=== PATIENT | male | born 1945 | race Caucasian/White ===

== ENCOUNTER 2017-12-24 19:58 | Inpatient (IN) | payer MEDICARE, OTHER ==
[~2017-12-24] VITALS: Ht 188 cm; Wt 103.1 kg
--- OUTSIDE RECORDS SUMMARY | ~2017-12-24 | XMS | Clinical Summary ---
Demographics + + + | Address | [address] | | | [place] [address] | + + + | Home Phone | | + + + | Preferred Language | Unknown | + + + | Marital Status | | + + + | Church Affiliation | Unknown | + + + | Race | Unknown | + + + | Ethnic Group | Unknown | + + + Author + + + | Author | [facility] | | | and [place] | + + + | Organization | [facility] | | | and [place] | + + + | Address | Unknown | + + + | Phone | Unavailable | + + + Support + + + + + | Name | Relationship | Address | Phone | + + + + + | Lisbeth Nunez | ECON | [address] | | | | | [place] | | | | | [address] | | + + + + + Care Team Providers + +------+ + | Care Implementation Advisor Name | Role | Phone | + +------+ + | Everton Stephen MD | PP | | + +------+ + Allergies Not on File Current Medications Not on file Active Problems Not on file Social History + +-------+ +--------+------+ | Tobacco Use | Types | Packs/Day | Years | Date | | | | | Used | | + +-------+ +--------+------+ | Never Assessed | | | | | + +-------+ +--------+------+ + + + | Sex Assigned at | Date Recorded | | | | + + + | Not on file | | + + + Plan of Treatment + + + + + | Health Maintenance | Due Date | Last Done | Comments | + + + + + | Hepatitis C | | | | | Screening | 7 | | | + + + + + | Vaccine: | | | | | Dtap/Tdap/Td (1 - | 6 | | | | Tdap) | | | | + + + + + | COLON CANCER | | | | | SCREENING | 7 | | | | (COLONOSCOPY EVERY | | | | | 10 YEARS 50-75) | | | | + + + + + | Vaccine: | | | | | Pneumococcal 65+ | 2 | | | | Low/Medium Risk (1 | | | | | of 2 - PCV13) | | | | + + + + + | Vaccine: Influenza | | | | | (Season Ended) | 8 | | | + + + + + Results Not on filefrom Last 3 Months Insurance + +--------+ +--------+ +---------+ | Payer | Benefi | Subscriber | Type | Phone | Address | | | t Plan | ID | | | | | | / | | | | | | | Group | | | | | + +--------+ +--------+ +---------+ | MEDICARE | MEDICA | xxxxxxxxxx | Medica | +1--- | | | | RE | | re | [phone] | | | | PART A | | | | | | | AND B | | | | | + +--------+ +--------+ +---------+ | [employer] | TRANSA | xxxxxxxxx | Indemn | | | | INSURANCE | MERICA | | ity | | | | | LIFE | | | | | | | [place] | | | | | + +--------+ +--------+ +---------+ + +--------+ +--------+ + + | Guarantor Name | Accoun | Relation to | Date | Phone | Billing Address | | | t Type | Patient | of | | | | | | | | | | + +--------+ +--------+ + + | BRIAN NUNEZ | Person | Self [birth year] | Home: | [address] | | | [place] | | 1944 | [phone] | [place] | | | [place] | | | [phone] | [phone] | + +--------+ +--------+ + +"
--- OUTSIDE RECORDS SUMMARY | ~2017-12-24 | XMS | Clinical Summary ---
Demographics + + + | Address | [address] | | | [place] [address] | + + + | Home Phone | | + + + | Preferred Language | Unknown | + + + | Marital Status | | + + + | Orthodoxy Affiliation | Unknown | + + + | Race | Unknown | + + + | Ethnic Group | Unknown | + + + Author + + + | Author | [facility] | | | and [place] | + + + | Organization | [facility] | | | and [place] | [...] [place] | | | | | [address] | | + + + + + Care Team Providers + +------+ + | Care Spanish Tutor Name | Role | Phone | + [...] | | [place] | | 1944 | [phone] | [place] | | | [place] | | | [phone] | [phone] | + +--------+ +--------+ + +"
--- OUTSIDE RECORDS SUMMARY | ~2017-12-24 | XMS | Clinical Summary ---
Demographics + + + | Address | [address] | | | [place] [address] | + + + | Home Phone | | + + + | Preferred Language | Unknown | + + + | Marital Status | | + + + | Mandaen Affiliation | Unknown | + + + | Race | Unknown | + + + | Ethnic Group | Unknown | + + + Author + + + | Author | [facility] | | | and [place] | + + + | Organization | [facility] | | | and [place] [...] [place] | | | | | [address] | | + + + + + Care Team Providers + +------+ + | Care Plant Manager Name | Role | Phone | + [...] | | [place] | | 1944 | [phone] | [place] | | | [place] | | | [phone] | [phone] | + +--------+ +--------+ + +"
--- OUTSIDE RECORDS SUMMARY | ~2017-12-24 | XMS | Clinical Summary ---
Demographics + + + | Address | [address] | | | [place] [address] | + + + | Home Phone | | + + + | Preferred Language | Unknown | + + + | Marital Status | | + + + | Alevism Affiliation | Unknown | + + + | Race | White | + + + | Ethnic Group | Not or | + + + Author + + + | Author | [facility] | + + + | Organization | [facility] | + + + | Address | Unknown | + + + | Phone | Unavailable | + + + Support + + +---------+ + | Name | Relationship | Address | Phone | + + +---------+ + | Lisbeth Church | ECON | Unknown | | + + +---------+ + Care Team Providers + +------+ + | Care Import/Export Administrator Name | Role | Phone | + +------+ + | Everton Stephen MD | PP | | + +------+ + Source Comments ANTONIO is fully live on both [facility] and [facility] InPatient.[facility] Allergies No Known Allergies Current Medications [...]
--- OUTSIDE RECORDS SUMMARY | ~2017-12-24 | XMS | Clinical Summary ---
Demographics + + + | Address | [address] | | | [place] [address] | + + + | Home Phone | | + + + | Preferred Language | Unknown | + + + | Marital Status | | + + + | Oriental Orthodox Affiliation | Unknown | + + + | Race | White | + + + | Ethnic Group | Not or | + + + Author + + + | Author | [facility] | + + + | Organization | [facility] | + [...] Team Providers + +------+ + | Care Fitter Helper Name | Role | Phone | + +------+ + | Everton Stephen MD | PP | | + +------+ + Source Comments ANTONIO is fully live on both [facility] Ambulatory and [facility] InPatient.[facility] Allergies No Known Allergies Current Medications + [...]
--- OUTSIDE RECORDS SUMMARY | ~2017-12-24 | XMS | Clinical Summary ---
Demographics + + + | Address | [address] | | | [place] [address] | + + + | Home Phone | | + + + | Preferred Language | Unknown | + + + | Marital Status | | + + + | Sikh Affiliation | Unknown | + + + | Race | White | + + + | Ethnic Group | Not or | + + + Author + + + | Author | [facility] | + + + | Organization | [facility] | + [...] Team Providers + +------+ + | Care Mechanical Research Engineer Name | Role | Phone | + +------+ + | Everton Stephen MD | PP | | + +------+ + Source Comments ANTONIO is fully live on both [facility] Ambulatory and [facility] InPatient.[facility] Allergies No Known Allergies Current Medications [...]
[~2017-12-24 19:58] MED LIST: ALLOPURINOL300 MG PO; ASPIR-LOW81 MG PO; ATIVAN1 MG PO; BENADRYL ALLERG25 MG PO; DEXAMETHASONE4 MG PO; DIFLUCAN200 MG PO; MULTI VITAMIN1 EACH PO; VITAMIN D5000 UNI1 PO; ZESTRIL10 MG PO; ZOVIRAX400 MG PO
[2017-12-25] MEDS ORDERED: TAMSULOSIN HCL0.4 MG PO (19:06)
[2017-12-25] MEDS ORDERED: CEFPODOXIME PR200 MG PO (19:08)
[2017-12-26] MEDS ORDERED: CEFPODOXIME PR200 MG PO (09:03)
== END 2017-12-26 09:30 | disposition home or self-care (01) | DRG 872 ==
LOC: ED 19:58 → MS 23:06 → CCU 23:06 → MS 12-25 14:47
PROVIDERS: ADMIT Internal Medicine
DX: A41.51 Sepsis due to Escherichia coli [E. coli] (principal); N30.00 Acute cystitis without hematuria; C94.81 Other specified leukemias, in remission; B96.89 Other specified bacterial agents as the cause of diseases classified elsewhere; N40.1 Benign prostatic hyperplasia with lower urinary tract symptoms; R35.0 Frequency of micturition; R35.1 Nocturia; R39.15 Urgency of urination; I10 Essential (primary) hypertension; F51.04 Psychophysiologic insomnia; M79.621 Pain in right upper arm; Z79.82 Long term (current) use of aspirin; Z79.899 Other long term (current) drug therapy
CPT/HCPCS: 36415; 71046; 76882; 80048; 80053; 81001; 83605; 83735; 85025; 85610; 85730; 87040; 87077; 87088; 87186; 87502; J0692; J0696; J1650; J2405; J7030; J7120

== ENCOUNTER 2018-04-12 15:52 | Emergency (ER) | payer MEDICARE, OTHER ==
[~2018-04-12] VITALS: Ht 185.4 cm; Wt 99.8 kg
--- OUTSIDE RECORDS SUMMARY | ~2018-04-12 | XMS | Clinical Summary ---
Demographics + + + | Address | [address] [address] | | | [place] [address] | + + + | Home Phone | | + + + | Preferred Language | Unknown | + + + | Marital Status | | + + + | Anabaptism Affiliation | Unknown | + + + | Race | White | + + + | Ethnic Group | Not or | + + + Author + + + | Author | [facility] | + + + | Organization | [facility] | + + + | Address | Unknown | + + + | Phone | Unavailable | + + + Support + + +---------+ + | Name | Relationship | Address | Phone | + + +---------+ + | Lisbeth Nunez | ECON | Unknown | | + + +---------+ + Care Team Providers + +------+ + | Care Records Custodian Name | Role | Phone | + +------+ + | Everton Stephen MD | PP | | + +------+ + Source Comments ANTONIO is fully live on both [facility] Amb[facility] and [facility] InPatient.[facility] Allergies No Known Allergies Current Medications + + +-------+---------+------+------+-------+ | Prescription | Sig. | Disp. | Refills | Star | End | Statu | | | | | | t | Date | s | | | | | | Date | | | + + +-------+---------+------+------+-------+ | lisinopril 10 mg | Take 10 mg by mouth | | | | | Activ | | Oral tablet | once daily. | | | | | e | + + +-------+---------+------+------+-------+ | aspirin EC 81 mg | Take 81 mg by mouth | | | | | Activ | | Oral tablet,delayed | once daily. | | | | | e | | release (DR/EC) | | | | | | | + + +-------+---------+------+------+-------+ | ERGOCALCIFEROL, | Take 8,000 mg by | | | | | Activ | | VITAMIN D2, (VITAMIN | mouth. | | | | | e | | D ORAL) | | | | | | | + + +-------+---------+------+------+-------+ | MULTIVITS/IRON | Take by mouth. | | | | | Activ | | FUM/FA/D3/LYCOP | | | | | | e | | (MULTI FOR HIM ORAL) | | | | | | | + + +-------+---------+------+------+-------+ Active Problems + + + | Problem | Noted Date | + + + | ANTONIO RESEARCH PROTOCOL PATIENT (ARACELY) | 08/01/2013 | + + + + + | Overview: The patient was consented to the study eIRB #[id number] | | titled "Pathogenesis of Acute Leukemia, Lymphoproliferative | | Disorders, Myelodysplastic Syndromes, and Myeloproliferative | | Disorders" on 06/21/2013 By Abelino Olivarez. Patient declined | | having a small skin biopsy taken during the bone marrow biopsy. | + + + + + | CLL (chronic lymphocytic leukemia) (HCC) | 06/21/2013 | + + + Immunizations +-------+ + + | Name | Dates Previously Given | Next Due | +-------+ + + | PCV13 | 06/21/2013 | | +-------+ + + Family History + + +------+ + | Medical History | Relation | Name | Comments | + + +------+ + | Cancer | Father | | GI tumor | + + +------+ + | Heart Disease | Father | | | + + +------+ + | Cancer | Mother | | oesphageal | + + +------+ + | Cancer | Sister | | cervical | + + +------+ + | Stroke | Sister | | | + + +------+ + + +------+--------+ + | Relation | Name | Status | Comments | + +------+--------+ + | Father | | | | + +------+--------+ + | Mother | | | | + +------+--------+ + | Sister | | | | + +------+--------+ + Social History + +-------+ +--------+------+ | Tobacco Use | Types | Packs/Day | Years | Date | | | | | Used | | + +-------+ +--------+------+ | Never Smoker | | | | | + +-------+ +--------+------+ + + +---------+ + | Alcohol Use | Drinks/We | oz/Week | Comments | | | ek | | | + + +---------+ + | Yes | | | 5-7 drinks a week | + + +---------+ + + + + | Sex Assigned at | Date Recorded | | | | + + + | Not on file | | + + + Last Filed Vital Signs + + + + | Vital Sign | Reading | Time Taken | + + + + | Blood Pressure | 142/89 | 06/21/2013 9:55 AM PDT | + + + + | Pulse | 71 | 06/21/2013 9:55 AM PDT | + + + + | Temperature | 36.8 C (98.3 F) | 06/21/2013 9:55 AM PDT | + + + + | Respiratory Rate | 18 | 06/21/2013 9:55 AM PDT | + + + + | Oxygen Saturation | 95% | 06/21/2013 9:55 AM PDT | + + + + | Inhaled Oxygen | - | - | | Concentration | | | + + + + | Weight | 97 kg (213 lb 14.4 | 06/21/2013 9:55 AM PDT | | | oz) | | + + + + | Height | 184 cm (6' 0.44") | 06/21/2013 9:55 AM PDT | + + + + | Body Mass Index | 28.66 | 06/21/2013 9:55 AM PDT | + + + + Plan of Treatment + + + + + | Health Maintenance | Due Date | Last Done | Comments | + + + + + | INFLUENZA VACCINE | | | | | (FLU SHOT) | 8 | | | + + + + + Results Not on filefrom Last 3 Months Insurance + +--------+ +--------+ + + | Payer | Benefi | Subscriber | Type | Phone | Address | | | t Plan | ID | | | | | | / | | | | | | | Group | | | | | + +--------+ +--------+ + + | MEDICARE | MEDICA | xxxxxxxxxx | Medica | +1- | [address] | | | RE A & | | re | [phone] | [place] [address] | | | B | | | | | + +--------+ +--------+ + + | COMMERCIAL | INDIVI | [phone] | Indemn | | | | INDIVIDUAL | DUAL | | ity | | | | | COMMER | | | | | | | CIAL | | | | | + +--------+ +--------+ + + + +--------+ +--------+ + + | Guarantor Name | Accoun | Relation to | Date | Phone | Billing Address | | | t Type | Patient | of | | | | | | | | | | + +--------+ +--------+ + + | BRIAN NUNEZ | Person | Self [birth year] | Home: | [address] | | | [place] | | 1945 | [phone] | [place] | | | [place] | | | [phone] | [phone] | + +--------+ +--------+ + +
--- OUTSIDE RECORDS SUMMARY | ~2018-04-12 | XMS | Clinical Summary ---
Demographics + + + | Address | [address] | | | [place] [address] | + + + | Home Phone | | + + + | Preferred Language | Unknown | + + + | Marital Status | | + + + | Jain Affiliation | Unknown | + + + | Race | Unknown | + + + | Ethnic Group | Unknown | + + + Author + + + | Author | [facility] | | | and [place] | + + + | Organization | [facility] | | | and [place] | [...] [place] | | | | | [address] | | + + + + + Care Team Providers + +------+ + | Care Global Process Owner Name | Role | Phone | + [...] | + + + + + | Colorectal Cancer | | | | | Screening | 7 | | | | (Colonoscopy) | | | | + + + + + | Vaccine: | | | | | Pneumococcal 65+ | 2 | | | | Low/Medium Risk (1 | | | | | of 2 - PCV13) | | | | + + + + + | Vaccine: Influenza | | | | | (#1) | 8 | | | + + [...] +--------+ +---------+ | MEDICARE | MEDICA | [id number] | Medica | [phone] | | | | RE | | re | [phone] | | | | PART A | | | | | | | AND B | | | | | + +--------+ +--------+ +---------+ | [employer] | TRANSA | [id number] | Indemn | | | | INSURANCE [...] Self | [birth year] | Home: | [address] | | | [place] | | 1945 | [phone] | [place] | | | [place] | | | [phone] | [phone] | + +--------+ +--------+ + +"
--- OUTSIDE RECORDS SUMMARY | ~2018-04-12 | XMS | Clinical Summary ---
Demographics + + + | Address | [address] | | | [place] [address] | + + + | Home Phone | | + + + | Preferred Language | Unknown | + + + | Marital Status | | + + + | Bahai Affiliation | Unknown | + + + | Race | Unknown | + + + | Ethnic Group | Unknown | + + + Author + + + | Author | [facility] | | | and [place] | + + + | Organization | [facility] | | | and [...] [place] | | | | | [address] | | + + + + + Care Team Providers + +------+ + | Care Estimator And Drafter Name | Role | Phone | + [...] +--------+ +---------+ | MEDICARE | MEDICA | [id number] | Medica | [phone] | | | | RE | | re | [phone] | | | | PART A | | | | | | | AND B | | | | | + +--------+ +--------+ +---------+ | [employer] | TRANSA | [id number] | Indemn | | | | INSURANCE [...] | | [place] | | 1945 | [phone] | [place] | | | [place] | | | [phone] | [phone] | + +--------+ +--------+ + +"
--- OUTSIDE RECORDS SUMMARY | ~2018-04-12 | XMS | Clinical Summary ---
Demographics + + + | Address | [address] [facility] [address] [facility] | | | [place] [address] | + + + | Home Phone | | + + + | Preferred Language | Unknown | + + + | Marital Status | | + + + | Restorationism Affiliation | Unknown | + + + [...] Team Providers + +------+ + | Care Senior Director Name | Role | Phone | + +------+ + | Everton Stephen MD | PP | | + +------+ + Source Comments ANTONIO is fully live on both [facility] Amb[facility] and [facility] InPatient.[facility] Allergies No Known Allergies Current Medications [...] | re | [phone] | [place] [address] | | | B | | | [...] | | [place] | | 1945 | [phone] | [place] | | | [place] | | | [phone] | [phone] | + +--------+ +--------+ + +
[~2018-04-12 15:52] MED LIST changes: +CEFPODOXIME PR200 MG PO; +TAMSULOSIN HCL0.4 MG PO
[2018-04-12] MEDS ORDERED: FLOMAX0.4 MG PO (16:09)
[2018-04-12] MEDS ORDERED: KEFLEX500 MG PO (19:13)
[2018-04-12] MEDS ORDERED: CEFPODOXIME PR200 MG PO (19:19)
== END 2018-04-12 19:35 | disposition home or self-care (01) ==
LOC: ED 15:52
DX: J32.9 Chronic sinusitis, unspecified (principal); R82.71 Bacteriuria; Z79.82 Long term (current) use of aspirin; Z79.899 Other long term (current) drug therapy
CPT/HCPCS: 71045; 80053; 81001; 83605; 85025; 96361; 96374; 99284; J0696; J7030

== ENCOUNTER 2022-07-09 10:20 | Day surgery (SDC) | payer MEDICARE, OTHER ==
[~2022-07-09] VITALS: Ht 188 cm; Wt 95.5 kg
[~2022-07-09 10:20] MED LIST changes: +FINASTERIDE5 MG PO; +FLOMAX0.4 MG PO; +IMBRUVICA420 MG PO; +KEFLEX500 MG PO; +MUPIROCIN15 GM TOP; +VITAMIN C500 M4 PO
[2022-07-09] MEDS ORDERED: ZINC50 MG PO (10:35)
[2022-07-09] MEDS ORDERED: ADULT LOW DOSE81 MG PO (10:36)
--- NOTE | 2022-07-09 12:23 | NUR ---
07/09/22 1223 Narda Macias 1211 PATIENT ARRIVES TO PACU SLEEPING ON ABD. RESP EVEN AND UNLABORED, NC OFF, ROOM AIR SATS >97%. 1215 PATIENT REPOSITIONS SELF TO BACK. RESP EVEN AND UNLABORED, ROOM AIR SATS >97%. DENIES PAIN OR NAUSEA.
--- NOTE | 2022-07-11 12:07 | PATH ---
[facility] [address] [place], [place] [address] Signed SPECIMEN(S): A BONE MARROW - CORE SPECIMEN(S): B BONE MARROW - ASPIRATION CLINICAL HISTORY: 76-year-old male with confirmed CLL, progressive lymphocytosis while on ibrutinib. Evaluate for recurrent disease. See attached. C91.90 (Lymphoid leukemia, unspecified not having achieved remission) DIAGNOSIS SUMMARY: Peripheral blood - Mild leukocytosis with mild relative and absolute lymphocytosis. Bone marrow, aspirate smear, touch imprint, aspirate clot and core biopsy: - Mildly hypercellular marrow (55%) involved by a small amount of CD5-positive B-cell infiltrate (10%), consistent with chronic lymphocytic leukemia/small lymphocytic lymphoma. - See Diagnostic Comment. DIAGNOSTIC COMMENT: The patient's reported clinical history of chronic lymphocytic leukemia/small lymphocytic lymphoma is noted. The current bone marrow biopsy shows mildly hypercellular marrow (55%) involved by small amount of CD5-positive B-cell infiltrate (10%), consistent with chronic lymphocytic leukemia/small lymphocytic lymphoma. There is no evidence of large cell transformation. Pending FISH studies will be reported by addendum. Clinical correlation is recommended. LY:clm:C1NR PERIPHERAL BLOOD: HEMOGRAM (07/09/2022): WBC 18.9 K/uL, RBC 5.17 M/uL, HGB 15.2 g/dL, HCT 47.0%, MCV 90.8 fL, MCH 29.5 pg, MCHC 32.4 g/dL, RDW 13.6%, PLT 309 K/uL, MPV 8.8 fL. MANUAL DIFFERENTIAL COUNT: Segmented neutrophils 26%, lymphocytes 63%, monocytes 11%. The red blood cells are normal in number with normal hemoglobin and hematocrit, and are normocytic and normochromic without overt anisocytosis. Rouleaux formation is not increased. The white blood cells are elevated in number with relative and absolute lymphocytosis. Lymphocytes include predominantly small lymphoid cells with round to slightly irregular nuclei, condensed chromatin, inconspicuous nucleoli and scant cytoplasm. A few scattered smudge cells are present. The platelets are normal in number and are morphologically PATIENT NAME: BRIAN NUNEZ PATHOLOGY DATE OF : 49 REPORT #: [id number] PHYSICIAN: LUKAS RO PCP: ISAAC MORSE MD REPORT IS CONFIDENTIAL AND NOT TO BE RELEASED WITHOUT AUTHORIZATION [facility] [address] [place], [place] [address] Signed unremarkable. BONE MARROW: ASPIRATE SMEARS: The aspirate smears show very scant cellular particles. The erythroid precursors show maturation and are mildly left-shifted without overt cytologic atypia. The myeloid precursors are mildly left-shifted with full maturation, without overt cytologic atypia. There is no increase in blasts. Small lymphoid cells account for 24%. Megakaryocytes are variable in size and morphologically unremarkable. BONE MARROW CORE BIOPSY/ASPIRATE CLOT CELL BLOCK: The core biopsy (two segments, 1.2 cm in greatest dimension) shows trabecular bone with partially disrupted hypercellular marrow (55%) for age with partial aspirate artifact. The erythroid precursors show maturation. The myeloid precursors show maturation. Scattered megakaryocytes show occasional hypolobated forms. A few scattered small lymphocytes account for less than 5% of cellularity. Focal interstitial small lymphoid aggregates composed predominantly of small lymphoid cells account for less than 5% of cellularity. A few scattered plasma cells account for less than 5% of cellularity. The aspirate clot shows small fragments of cellular marrow with similar morphology. SPECIAL STAINS (with adequate controls): - Iron (aspirate smear): Storage iron present; ring sideroblasts not identified. - Iron (aspirate clot): Trace storage iron present; ring sideroblasts not identified. IMMUNOHISTOCHEMICAL STAINS (block A1, with adequate controls): - CD3: Stains a few scattered and focally clustered small T-cells. - CD5: Positive in a few scattered and focally clustered small T-cells; dimly positive in scattered B-cell infiltrate. - CD20: Dimly positive in rare B-cells. - PAX5: Stains scattered and focally clustered small B-cell infiltrate (10%). - Cyclin D1: Negative in lymphoid cells. FLOW CYTOMETRY: Bone marrow, aspirate: - CD5-positive B-cell population (15%) identified. - No increase in blasts. - No aberrant T-cell population. - See Comment. COMMENT: PATIENT NAME: BRIAN NUNEZ PATHOLOGY DATE OF : 49 REPORT #: [id number] PHYSICIAN: LUKAS PATHOLOGY PCP: ISAAC MORSE MD REPORT IS CONFIDENTIAL AND NOT TO BE RELEASED WITHOUT AUTHORIZATION [facility] [address] [place] [id number] Signed In summary, flow cytometry reveals a population of dim lambda-restricted B-cells (64% of lymphocytes, 15% of total events) expressing CD5(dim), CD19(dim-mod), CD20(dim) and CD200(dim-mod), and negative for CD10, CD23 and CD38. The phenotypic findings raise differential diagnosis of chronic lymphocytic leukemia/small lymphocytic lymphoma and monoclonal B-cell lymphocytosis. Correlation with morphologic findings is recommended for full evaluation. FLOW CYTOMETRY ANALYSIS: FLOW DIFFERENTIAL (% Total CD45 vs. SSC gating): Myeloid 68%; Lymphoid 23%; Monocyte 3%; Dim CD45/Blast: 0.9%. Cell Count: 8.3 x 10*3/uL. POPULATION ANALYSIS: BLASTS: Analysis of the dim CD45 gate demonstrates 0.9% myeloblasts by CD34/CD117 and 0.1% hematogones. LYMPHOID CELLS: The lymphocyte gate comprises 23% of total events and includes 28% T-cells with a CD4:CD8 ratio of 1.0:1 and normal morris T-cell antigen expression. A lambda-restricted B-cell population is detected (64% of lymphocytes, 15% of total events) expressing CD45 DIM-MOD, CD19 DIM-MOD, CD20 DIM, CD5 DIM and LAMBDA DIM while negative for CD10, CD23 and CD38. Due to the absence of CD23 expression, select additional antibodies are run to further characterize the Bcells. Expression of CD200 DIM-MOD is noted. The remainders are NK-cells. MYELOID CELLS: The myeloid population comprises 68% of the total events. No aberrant immunophenotypic expression is detected. MONOCYTES: The monocyte population comprises 3% of the total events. Monocytes are not increased. No aberrant immunophenotypic expression is detected. PLASMA CELLS: 0.4% plasma cells are detected in the screening gate neg-dimCD45/CD38. Plasma cells are CD45 dim and positive for CD19. Initial Antibodies Used: KAPPA, LAMBDA, CD20, CD10, CD19, CD23, CD38, CD16, CD56, CD8, CD5, CD2, CD4, CD7, CD3, CD14, CD33, CD13, HLADR, CD34, CD117, CD15, CD45. Additional Antibodies (necessary for further classification of B lymphocytes): CD200. Total Antibodies Used: 24. JNB FINAL DIAGNOSIS PERFORMED BY: Kurt Mora MD, Pathologist Jul 10 2022 4:20PM FISH ANALYSIS: Pending, to be reported by addendum. PATIENT NAME: BRIAN NUNEZ PATHOLOGY DATE OF : 49 REPORT #: [id number] PHYSICIAN: LUKAS RO PCP: ISAAC MORSE MD REPORT IS CONFIDENTIAL AND NOT TO BE RELEASED WITHOUT AUTHORIZATION [facility] [address] [place], [place] [address] Signed GROSS DESCRIPTION: Two specimens are received in two containers, labeled "JM." A. The specimen, labeled "JM, bone marrow core biopsy," is received in formalin and consists of one pink-andersen, needle core, bone tissue fragment that measures 1.6 cm in length and up to 0.2 cm in diameter. Specimen is left for decalcification in [facility] prior to processing. Specimen is entirely submitted in cassette (A1). B. The specimen, labeled "JM, bone marrow biopsy, blood clot," is received in formalin and consists of irregular shaped, coagulated blood that measures 1.0 x 1.0 x 0.2 cm. Specimen is entirely submitted in cassette (B1). JS (under the direct supervision of a pathologist) The Gross Description was prepared using a voice recognition system. The report was reviewed for accuracy; however, sound-alike word errors, addition and/or deletions may occur. If there is any question about this report, please contact Client Services. ADDITIONAL NOTES: This test was developed and its performance characteristics determined by [facility]. It has not been cleared or approved by the US Food and Drug Administration. The FDA does not require this test to go through premarket FDA review. This test is used for clinical purposes. It should not be regarded as investigational or for research. This laboratory is certified under the Clinical Laboratory Improvement Amendments (CLIA) as qualified to perform high complexity clinical laboratory testing. Immunohistochemical and/or in situ hybridization studies were performed on this case with the appropriate positive controls that react as expected. This test was developed and its performance characteristics determined by [facility]. It has not been cleared or approved by the U.S. Food and Drug Administration. The FDA has determined that such clearance or approval is not necessary. This test is used for clinical purposes. It should not be regarded as investigational or for research. [facility] is certified under the Clinical Laboratory Improvement Amendments of 1988 (CLIA) as qualified to perform high complexity clinical laboratory testing. This assay has not been validated for specimens that have been decalcified. In this case, certain antibodies were performed by both immunohistochemistry and flow cytometry analysis because flow cytometry analysis did not fully PATIENT NAME: BRIAN NUNEZ PATHOLOGY DATE OF : 49 REPORT #: [id number] PHYSICIAN: LUKAS RO PCP: ISAAC MORSE MD REPORT IS CONFIDENTIAL AND NOT TO BE RELEASED WITHOUT AUTHORIZATION [facility] [address] [place], [place] [address] Signed explain all the light microscopic findings. Immunohistochemistry aided in the analysis. Both methods are deemed medically necessary in this case. PERFORMING LABORATORY: The technical preparation and professional interpretation were performed by [facility], [address] [place], [place] [address] [address] (CLIA#: [id number]). The technical component was performed by [facility], [address] [place] [id number] (CLIA# [id number]). Immunohistochemistry and professional interpretation were performed by [facility], [address] [place], [place] [address] [address] (CLIA#: [id number]). IMAGES: A: [id number] A: [id number] Diagnostician: Kurt Mora MD Pathologist Electronically Signed 07/11/2022 Copies: ~ PATIENT NAME: BRIAN NUNEZ PATHOLOGY DATE OF : 49 REPORT #: [id number] PHYSICIAN: LUKAS RO PCP: ISAAC MORSE MD REPORT IS CONFIDENTIAL AND NOT TO BE RELEASED WITHOUT AUTHORIZATION
== END 2022-07-09 12:40 | disposition home or self-care (01) ==
LOC: OPS 10:20 → DS 10:20 → OPS 12:00 → DS 12:00 → OPS 12:40
PROVIDERS: ATTEND Specialist
PROC: 07JT3ZZ Inspection of Bone Marrow, Percutaneous Approach (ICD-10-PCS; principal; 2022-07-09 12:00)
DX: C91.10 Chronic lymphocytic leukemia of B-cell type not having achieved remission (principal)
CPT/HCPCS: 36415; 80053; 82232; 83615; 85007; 85025; J2704; J7121

== ENCOUNTER 2024-09-14 11:24 | Emergency (ER) | payer MEDICARE, OTHER ==
[~2024-09-14] VITALS: Ht 188 cm; Wt 96.2 kg
[~2024-09-14 11:24] MED LIST changes: +ADULT LOW DOSE81 MG PO; +ZINC50 MG PO
[2024-09-14] MEDS ORDERED: ASPIRIN 81 MG CHEW PO ONE (11:30)
[2024-09-14] MEDS ORDERED: VENCLEXTA100 MG PO (11:36)
[2024-09-14 11:42] LABS: BASOPHILS 0.3 % (0-2); EOSINOPHILS 0.1 % (0-6); HEMATOCRIT 42.5 % (35.0-50.0); HEMOGLOBIN 14.4 g/dL (12.0-18.0); LYMPHOCYTES 47.6 % (24-44); MCH 32.6 (27-36); MCHC 33.9 g/dl (30-36); MCV 96.4 fl (81-99); MONOCYTES 15.9 % (0-12); NEUTROPHILS 36.1 % (39-80); PLATELET COUNT 225 K/uL (140-440); RBC 4.41 M/ul (4.3-5.7); RDW 13.7 (10.5-15.0)
[2024-09-14 12:03] LABS: ALBUMIN 3.7 g/dL (3.4-5.0); BILIRUBIN, TOTAL 0.6 ng/dL (0.2-1.0); BUN/CREATININE RATIO 11.96 (6.0-28.6); CALCIUM 9.7 mg/dL (8.5-10.1); CREATININE, SERUM 1.17 mg/dL (0.70-1.30); MAGNESIUM 2.4 mg/dL (1.8-2.4); PROTEIN, TOTAL 7.4 g/dL (6.4-8.2)
--- NOTE | 2024-09-14 12:50 | EKG ---
[facility] [address] [place] [address] Signed Normal sinus rhythm Possible Inferior infarct , age undetermined Abnormal ECG When compared with ECG of 27-SEP-2016 15:27, Borderline criteria for Inferior infarct are now present Confirmed by Reny Crenshaw MD ([id number]) on 09/14/2024 12:50:18 PM Electronically Signed By: RENY CRENSHAW MD 09/14/24 1250 PATIENT NAME: BRIAN NUNEZ Electrocardiogram DATE OF : 49 PHYSICIAN: RENY CRENSHAW MD REPORT #: [id number] REPORT IS CONFIDENTIAL AND NOT TO BE RELEASED WITHOUT AUTHORIZATION
[2024-09-14 14:24] VITALS: BP 132/80
== END 2024-09-14 14:29 | disposition home or self-care (01) ==
LOC: ED 11:24
PROVIDERS: Emergency Medicine
DX: R07.89 Other chest pain (principal); Z79.82 Long term (current) use of aspirin; Z79.899 Other long term (current) drug therapy
CPT/HCPCS: 36415; 71045; 80053; 83690; 83735; 84484; 85025; 85379; 93005; 93010; 99285-25; A9270

== ENCOUNTER 2024-09-16 08:29 | Emergency (ER) | payer MEDICARE, OTHER ==
[~2024-09-16] VITALS: Ht 188 cm; Wt 98.4 kg
[~2024-09-16 08:29] MED LIST changes: +VENCLEXTA100 MG PO
--- OUTSIDE RECORDS SUMMARY | 2024-09-16 08:32 | XMS ---
PreManage Notification: BRIAN NUNEZ [employer] Events No recent Security Events currently on file CRITERIA MET - [facility] [place] [facility] - 2 Visits in 30 Days CARE PROVIDERS MINI [facility] Current PHONE: Unknown Sharmaine has no Care Guidelines for this patient. Jacky VISIT COUNT (12 MO.) 2 [facility] TOTAL 2 NOTE: Visits indicate total known visits. ED/UCC VISIT TRACKING (12 MO.) 09/16/2024 08:30 [facility] TYPE: Emergency COMPLAINT: - CHEST PAIN 09/14/2024 11:24 [facility] TYPE: Emergency COMPLAINT: - CHEST PAIN DIAGNOSES: - manager terminal (current) use of aspirin - Other chest pain - Other jail (current) drug therapy INPATIENT VISIT TRACKING (12 MO.) No inpatient visits to display in this time frame [email or web address]
[2024-09-16 08:59] LABS: BASOPHILS 0.3 % (0-2); EOSINOPHILS 0.1 % (0-6); HEMATOCRIT 39.8 % (35.0-50.0); HEMOGLOBIN 13.9 g/dL (12.0-18.0); LYMPHOCYTES 36.3 % (24-44); MCH 33.3 (27-36); MCV 95.2 fl (81-99); MONOCYTES 16.3 % (0-12); PLATELET COUNT 213 K/uL (140-440); RBC 4.18 M/ul (4.3-5.7)
[2024-09-16 09:16] LABS: ALBUMIN 3.6 g/dL (3.4-5.0); ANION GAP 14.6 (7-21); BILIRUBIN, TOTAL 0.5 ng/dL (0.2-1.0); BUN/CREATININE RATIO 12.5 (6.0-28.6); CALCIUM 8.7 mg/dL (8.5-10.1); CREATININE, SERUM 1.12 mg/dL (0.70-1.30); POTASSIUM 4.6 mmol/L (3.5-5.1); PROTEIN, TOTAL 7.2 g/dL (6.4-8.2)
[2024-09-16] MEDS ORDERED: ASPIRIN 81 MG CHEW PO ONE (09:45)
[2024-09-16] MEDS ORDERED: NITROGLYCERIN 0.4 MG SUBL SL PRN (09:45)
[2024-09-16] MEDS ORDERED: HEPARIN SOD,PORK IN 0.45% NACL 500 ML IV SCH (09:45)
[2024-09-16] MEDS ORDERED: HEParin SOD (PORCINE) 5,000 UNIT/ML VIAL IV ONE (09:45)
[2024-09-16 11:42] VITALS: BP 139/91
--- NOTE | 2024-09-16 21:37 | EKG ---
[facility] [address] [place] [address] Signed Unusual P axis, possible ectopic atrial rhythm Nonspecific T wave abnormality Abnormal ECG When compared with ECG of 14-SEP-2024 11:27, Ectopic atrial rhythm has replaced Sinus rhythm Borderline criteria for Inferior infarct are no longer present Nonspecific T wave abnormality now evident in Inferior leads Nonspecific T wave abnormality, worse in Anterolateral leads Confirmed by Praful English MD () on 09/16/2024 9:37:10 PM Electronically Signed By: PRAFUL ENGLISH MD 09/16/24 2137 PATIENT NAME: BRIAN NUNEZ Electrocardiogram DATE OF : 49 PHYSICIAN: PRAFUL ENGLISH MD REPORT #: [id number] REPORT IS CONFIDENTIAL AND NOT TO BE RELEASED WITHOUT AUTHORIZATION
--- NOTE | 2024-09-16 21:38 | EKG ---
[facility] [address] [facility] [place] [facility] [place] [address] Signed Normal sinus rhythm ST \T\ T wave abnormality, consider anterolateral ischemia Prolonged QT Abnormal ECG Confirmed by Praful English MD () on 09/16/2024 9:38:38 PM Electronically Signed By: PRAFUL ENGLISH MD 09/16/24 2138 PATIENT NAME: BRIAN NUNEZ Electrocardiogram DATE OF : 49 PHYSICIAN: PRAFUL ENGLISH MD REPORT #: [id number] REPORT IS CONFIDENTIAL AND NOT TO BE RELEASED WITHOUT AUTHORIZATION
== END 2024-09-16 11:49 | disposition short-term general hospital (02) ==
LOC: ED 08:29
PROVIDERS: Internal Medicine
DX: I21.4 Non-ST elevation (NSTEMI) myocardial infarction (principal); I24.9 Acute ischemic heart disease, unspecified; C91.10 Chronic lymphocytic leukemia of B-cell type not having achieved remission; I10 Essential (primary) hypertension; Z79.82 Long term (current) use of aspirin; Z79.899 Other long term (current) drug therapy
CPT/HCPCS: 36415; 71045; 80053; 84484; 85025; 85379; 93005; 93010; 96374; 99285-25; A9270; J1644